=== PATIENT | female | born 1955 | race Hispanic/Latino ===

== ENCOUNTER 2017-11-04 10:52 | Outpatient (CLI) | payer MEDICARE | END 2017-11-04 10:53 | disposition home or self-care (01) | LOC: BICMAMMO 10:52 | PROVIDERS: ATTEND Family Medicine | DX: Z12.31 Encounter for screening mammogram for malignant neoplasm of breast (principal); R92.1 Mammographic calcification found on diagnostic imaging of breast | CPT/HCPCS: 77063; 77067 ==

== ENCOUNTER 2017-11-14 07:45 | Outpatient (CLI) | payer MEDICARE | END 2017-11-14 07:46 | disposition home or self-care (01) | LOC: BICMAMMO 07:45 | PROVIDERS: ATTEND Nurse Practitioner | DX: Z13.820 Encounter for screening for osteoporosis (principal); N95.1 Menopausal and female climacteric states | CPT/HCPCS: 77080 ==

== ENCOUNTER 2018-12-22 11:25 | Outpatient (CLI) | payer MEDICARE ==
--- NOTE | 2018-12-22 11:51 | MMO ---
Bilateral MAMMO Bilat Screen [facility]. CLINICAL HISTORY: Patient is 63 years old and is seen for screening. The patient has no family history of breast cancer. The patient has no personal history of cancer. VIEWS: The views performed were: bilateral craniocaudal with tomosynthesis and bilateral mediolateral oblique with tomosynthesis. FILMS COMPARED: The present examination has been compared to prior imaging studies performed at [facility] on 11/03/2010, 07/01/2013, 11/01/2016 and 11/04/2017. MAMMOGRAM FINDINGS: There are scattered fibroglandular densities. There are benign appearing calcifications seen in both breasts. There are also vascular calcifications. There are no suspicious masses, suspicious calcifications, or new areas of architectural distortion. IMPRESSION: THERE IS NO MAMMOGRAPHIC EVIDENCE OF MALIGNANCY. A ROUTINE FOLLOW-UP MAMMOGRAM IN 1 YEAR IS RECOMMENDED. THE RESULTS OF THIS EXAM WERE SENT TO THE PATIENT. ACR BI-RADS Category 2 - Benign finding MAMMOGRAPHY NOTE: 1. A negative mammogram report should not delay a biopsy if a dominant of clinically suspicious mass is present. 2. Approximately 10% to 15% of breast cancers are not detected by mammography. 3. Adenosis and dense breasts may obscure an underlying neoplasm. Reported by: NANDO FRANCO MD Electonically Signed: [id number]
== END 2018-12-22 11:26 | disposition home or self-care (01) ==
LOC: BICMAMMO 11:25
PROVIDERS: ATTEND Nurse Practitioner
DX: Z12.31 Encounter for screening mammogram for malignant neoplasm of breast (principal)
CPT/HCPCS: 77063; 77067

== ENCOUNTER 2018-12-29 10:43 | Outpatient (CLI) | payer MEDICARE ==
--- NOTE | 2018-12-29 12:31 | ULT ---
SOFT TISSUE ULTRASOUND: HISTORY: Patient feels a lump just inferior to the umbilicus. FINDINGS: Targeted sonographic imaging in the region of concern demonstrates a solid echotexture focus measurin g 1.3 x 2.0 x 2.4 cm. Correlation made with a CT from 12/08/2018 does not demonstrate corresponding finding. IMPRESSION: Solid echotexture focus without significant enhancement involving the left anterior abdominal wall, w orse on the region of concern. There is no corresponding finding on recent CT. Clinical correlation is essential. Consider general surgical consultation for possible biopsy or excision. Transcribed Date/Time: 12/29/2018 12:37 PM
== END 2018-12-29 10:44 | disposition home or self-care (01) ==
LOC: SCSULT 10:43
PROVIDERS: ATTEND Nurse Practitioner
DX: R19.04 Left lower quadrant abdominal swelling, mass and lump (principal)
CPT/HCPCS: 76705

== ENCOUNTER 2020-02-17 08:31 | Outpatient (CLI) | payer MEDICARE ==
--- NOTE | 2020-02-17 11:36 | MMO ---
Bilateral MAMMO Bilat Screen [facility]. CLINICAL HISTORY: Patient is 64 years old and is seen for screening. The patient has no family history of breast cancer. The patient has no personal history of cancer. VIEWS: The views performed were: bilateral craniocaudal with tomosynthesis and bilateral mediolateral oblique with tomosynthesis. FILMS COMPARED: The present examination has been compared to prior imaging studies performed at [facility] on 07/01/2013, 11/01/2016, 11/04/2017 and 12/22/2018. This study has been interpreted with the assistance of computer-aided detection. MAMMOGRAM FINDINGS: The breasts are almost entirely fat. There are no suspicious masses, suspicious calcifications, or new areas of architectural distortion. IMPRESSION: THERE IS NO MAMMOGRAPHIC EVIDENCE OF MALIGNANCY. A ROUTINE FOLLOW-UP MAMMOGRAM IN 1 YEAR IS RECOMMENDED. THE RESULTS OF THIS EXAM WERE SENT TO THE PATIENT. ACR BI-RADS Category 1 - Negative MAMMOGRAPHY NOTE: 1. A negative mammogram report should not delay a biopsy if a dominant of clinically suspicious mass is present. 2. Approximately 10% to 15% of breast cancers are not detected by mammography. 3. Adenosis and dense breasts may obscure an underlying neoplasm. Reported by: EMILIANO SULLIVAN MD Electonically Signed: [id number]
== END 2020-02-17 08:32 | disposition home or self-care (01) ==
LOC: BICMAMMO 08:31
PROVIDERS: ATTEND Nurse Practitioner Family
DX: Z12.31 Encounter for screening mammogram for malignant neoplasm of breast (principal)
CPT/HCPCS: 77063; 77067

== ENCOUNTER 2020-10-20 09:17 | Outpatient (CLI) | payer MEDICARE, MEDICAID ==
[2020-10-20 10:31] LABS: Prothrombin Time 10.9 sec (9.5-12.1)
[2020-10-20 10:42] LABS: #Eosinphils 0.5 10x3/uL (0.0-0.5); #Monocytes 0.7 10x3/uL (0.0-1.1); #Neutrophils 3.1 10x3/uL (1.5-8.4); %Basophils 0.4 % (0.0-2.0); %Eosinophils 6.5 % (0.0-6.0); %Lymphocytes 45.9 % (18.0-47.0); %Monocytes 8.4 % (0.0-10.0); %Neutrophils 38.6 % (40.0-75.0); Hemoglobin 13.9 g/dL (12.0-15.5); Mean Corpuscular HGB CONC 31.9 g/dL (32.0-36.0); Mean Corpuscular Hemoglobin 27.3 pg (27.0-33.0); Mean Corpuscular Volume 85.5 fl (81.6-98.3); Mean Platelet Volume 10.1 fl (7.4-10.4); Platelet Count 293 10x3/uL (150-450); RBC Distribution Width 13.9 % (11.5-14.5); White Blood Cell (WBC) Count 8.1 10x3/uL (3.5-10.5)
[2020-10-20 10:43] LABS: Anion Gap 13 mmol/L (10-20); BUN (Urea Nitrogen) 23 mg/dL (9.8-20.1); Calc. Creatinine Clearance 0 mL/min (70-130); Calcium 11.3 mg/dL (7.8-10.44); Carbon Dioxide 24 mmol/L (23-31); Chloride 103 mmol/L (98-107); Glucose 122 mg/dL (80-115); Potassium 4.3 mmol/L (3.5-5.1); Sodium 136 mmol/L (136-145)
[2020-10-20 23:05] LABS: SARS-CoV-2 NAA Rapid Test Not Detected (NotDetected)
== END 2020-10-20 09:18 | disposition home or self-care (01) ==
LOC: LABBT 09:17
PROVIDERS: ATTEND Orthopaedic Surgery
DX: Z01.818 Encounter for other preprocedural examination (principal); M17.12 Unilateral primary osteoarthritis, left knee; Z20.822 Contact with and (suspected) exposure to COVID-19
CPT/HCPCS: 80048; 85025; 85610; 87081; 93005; U0002; U0005; 93010

== ENCOUNTER 2020-10-25 06:24 | Inpatient (IN) | payer MEDICARE, MEDICAID ==
[2020-10-24 12:14] VITALS: BMI 39.0
[2020-10-25] MEDS ORDERED: Vancomycin 1 GM/200 ML BAG ONE (07:35)
[2020-10-25] MEDS ORDERED: Tranexamic Acid 1,000 MG/10 ML VIAL ONE (07:35)
[2020-10-25] MEDS ORDERED: Sodium Chloride 0.9% 200 ML ONE (07:35)
[2020-10-25] MEDS ORDERED: Vancomycin HCl 500 MG VIAL ONE (07:35)
[2020-10-25] MEDS ORDERED: Midazolam HCl 2 mg/2 ml Vial ONE (08:07)
[2020-10-25] MEDS ORDERED: Fentanyl 100 MCG/2 ML VIAL ONE ×3 (08:07→11:09)
[2020-10-25] MEDS ORDERED: HYDROcodone/Acetaminophen 10/325 mg Tablet PO PRN ×2 (08:53)
[2020-10-25] MEDS ORDERED: Fentanyl 100 MCG/2 ML VIAL SLOW IVP PRN (08:53)
[2020-10-25] MEDS ORDERED: diphenhydrAMINE 25 MG CAP PO PRN (08:53)
[2020-10-25] MEDS ORDERED: Acetaminophen 325 MG TAB PO PRN (08:53)
[2020-10-25] MEDS ORDERED: Ondansetron PF 4 MG/2 ML Vial IVP PRN ×2 (08:53→09:15)
[2020-10-25] MEDS ORDERED: Zolpidem Tartrate 5 MG TAB PO PRN ×2 (08:53→09:15)
[2020-10-25] MEDS ORDERED: Promethazine HCl 25 MG/ML VIAL IM PRN ×3 (08:53→09:53)
[2020-10-25] MEDS ORDERED: traMADol HCl 50 MG TAB PO PRN ×3 (08:53→09:15)
[2020-10-25] MEDS ORDERED: Triamterene/Hydrochlorothiazide 37.5 mg/25 mg Tablet PO SCH (09:00)
[2020-10-25] MEDS ORDERED: FENOFIBRATE MICRONIZED 67 MG PO SCH (09:00)
[2020-10-25] MEDS ORDERED: Aspirin 81 mg Enteric Coated Tablet PO SCH (09:00)
[2020-10-25] MEDS ORDERED: Fentanyl 100 MCG/2 ML VIAL IV PRN (09:04)
[2020-10-25] MEDS ORDERED: Ropivacaine HCl/PF 250 ML in Premix Bag 1 BAG NERVE BLCK SCH (09:15)
[2020-10-25] MEDS ORDERED: Ropivacaine 2% HCl/PF (20 MG/10 ML VIAL) ONE (09:26)
[2020-10-25] MEDS ORDERED: Bupivacaine HCl 0.5%/Epinephrine 1:200,000/PF 30 ml Vial ONE (09:26)
[2020-10-25] MEDS ORDERED: ePHEDrine Sulfate 50 MG/10 ML VIAL ONE (09:26)
[2020-10-25] MEDS ORDERED: Lidocaine 1% PF 5 ML VIAL ONE (09:26)
[2020-10-25] MEDS ORDERED: PROPOFOL 200 MG/20 ML VIAL ONE (09:26)
[2020-10-25] MEDS ORDERED: Ondansetron HCl/PF 4 MG/2 ML Vial IVP PRN (09:53)
[2020-10-25] MEDS ORDERED: Promethazine HCl 25 MG/ML VIAL SLOW IVP PRN (09:53)
[2020-10-25] MEDS ORDERED: Insulin Regular 300 UNITS/3 ML VIAL SC PRN ×2 (13:18)
[2020-10-25] MEDS ORDERED: Dextrose 5% in Water 1,000 ML IV PRN (13:18)
[2020-10-25] MEDS ORDERED: Dextrose 50% Abboject 50 ML SYRINGE SLOW IVP PRN (13:18)
[2020-10-25] MEDS: Senokot S 8.6-50 MG TAB PO SCH ×2 (13:21→20:46)
[2020-10-25] MEDS: Gabapentin 300 MG CAP PO SCH ×2 (13:21→20:46)
[2020-10-25] MEDS: Multivitamin W/ Minerals 1 TAB PO SCH (13:21)
[2020-10-25] MEDS: Ferrous Gluconate 324 MG TAB PO SCH ×2 (13:21→20:43)
[2020-10-25] MEDS: Aspirin 81 mg Enteric Coated Tablet PO SCH (13:21)
[2020-10-25] MEDS: Sodium Chloride 0.9% 1,000 ML IV SCH ×2 (13:21→22:52)
[2020-10-25] MEDS: Ketorolac Tromethamine 30 MG/ML VIAL IVP SCH ×2 (13:26→17:32)
[2020-10-25] MEDS: HYDROcodone/Acetaminophen 10/325 mg Tablet PO PRN ×2 (13:32→17:33)
[2020-10-25] MEDS: CEFAZOLIN 2 GM in Premix Bag 1 BAG IVPB SCH (16:50)
[2020-10-25] MEDS: Empagliflozin 25 MG TAB PO SCH (20:44)
[2020-10-25] MEDS: Alogliptin 6.25 MG TAB PO SCH (20:45)
[2020-10-25] MEDS: Rosuvastatin 20 MG TAB PO SCH (20:46)
[2020-10-25] MEDS: metFORMIN 500 MG TAB PO SCH (20:46)
[2020-10-25] MEDS: Amlodipine 5 MG TAB PO SCH (20:47)
[2020-10-25] MEDS ORDERED: Amlodipine 5 MG TAB PO SCH (21:00)
[2020-10-26] MEDS: CEFAZOLIN 2 GM in Premix Bag 1 BAG IVPB SCH (00:54)
[2020-10-26] MEDS: Ketorolac Tromethamine 30 MG/ML VIAL IVP SCH ×4 (01:26→18:46)
[2020-10-26] MEDS: Sodium Chloride 0.9% 1,000 ML IV SCH ×2 (03:36→16:15)
[2020-10-26] MEDS: HYDROcodone/Acetaminophen 10/325 mg Tablet PO PRN ×2 (05:12→09:39)
[2020-10-26 06:11] LABS: Hemoglobin 12.4 g/dL (12.0-16.0); Mean Corpuscular HGB CONC 32.6 g/dL (32.0-36.0); Mean Corpuscular Hemoglobin 28.1 pg (27.0-31.0); Mean Corpuscular Volume 86.2 fL (78.0-98.0); Mean Platelet Volume 8.3 fL (7.4-10.4); Platelet Count 231 thou/uL (130-400); RBC Distribution Width 12.9 % (11.5-14.5); White Blood Cell (WBC) Count 8.8 thou/uL (4.8-10.8)
[2020-10-26] MEDS: Aspirin 81 mg Enteric Coated Tablet PO SCH (08:39)
[2020-10-26] MEDS: Multivitamin W/ Minerals 1 TAB PO SCH (08:39)
[2020-10-26] MEDS: Senokot S 8.6-50 MG TAB PO SCH ×2 (08:40→20:48)
[2020-10-26] MEDS: Alogliptin 6.25 MG TAB PO SCH ×2 (08:40→20:48)
[2020-10-26] MEDS: Losartan 25 MG TAB PO SCH ×2 (08:40→08:43)
[2020-10-26] MEDS: metFORMIN 500 MG TAB PO SCH (08:40)
[2020-10-26] MEDS: Fenofibrate 48 MG TAB PO SCH (08:41)
[2020-10-26] MEDS: Fish Oil 1,000 MG CAP PO SCH (08:41)
[2020-10-26] MEDS: Gabapentin 300 MG CAP PO SCH ×2 (08:41→20:48)
[2020-10-26] MEDS: Ferrous Gluconate 324 MG TAB PO SCH ×2 (08:41→20:48)
[2020-10-26] MEDS ORDERED: Losartan 25 MG TAB PO SCH (09:00)
[2020-10-26] MEDS: Empagliflozin 25 MG TAB PO SCH (20:46)
[2020-10-26] MEDS: Amlodipine 5 MG TAB PO SCH (20:46)
[2020-10-26] MEDS: Rosuvastatin 20 MG TAB PO SCH (20:46)
[2020-10-27] MEDS: Ketorolac Tromethamine 30 MG/ML VIAL IVP SCH
[2020-10-27] MEDS: Sodium Chloride 0.9% 1,000 ML IV SCH ×2 (01:24→11:25)
[2020-10-27] MEDS: HYDROcodone/Acetaminophen 10/325 mg Tablet PO PRN ×2 (06:10→11:27)
[2020-10-27] MEDS ORDERED: metFORMIN 500 MG TAB PO SCH (08:00)
[2020-10-27] MEDS: Gabapentin 300 MG CAP PO SCH (08:25)
[2020-10-27] MEDS: Senokot S 8.6-50 MG TAB PO SCH (08:25)
[2020-10-27] MEDS: Multivitamin W/ Minerals 1 TAB PO SCH (08:25)
[2020-10-27] MEDS: Alogliptin 6.25 MG TAB PO SCH (08:25)
[2020-10-27] MEDS: Fish Oil 1,000 MG CAP PO SCH (08:25)
[2020-10-27] MEDS: Ferrous Gluconate 324 MG TAB PO SCH (08:26)
[2020-10-27] MEDS: Fenofibrate 48 MG TAB PO SCH (08:26)
[2020-10-27] MEDS: Losartan 25 MG TAB PO SCH (08:28)
[2020-10-27] MEDS ORDERED: Aspirin 81 mg Enteric Coated Tablet PO SCH (09:00)
[2020-10-27 11:58] VITALS: BP 151/83; TEMP 97.9
== END 2020-10-27 13:10 | disposition home or self-care (01) | DRG 470 ==
LOC: SDC 06:24 → SURG B 08:54
PROVIDERS: ADMIT Orthopaedic Surgery; ATTEND Orthopaedic Surgery
PROC: 0SRD0J9 Replacement of Left Knee Joint with Synthetic Substitute, Cemented, Open Approach (ICD-10-PCS; principal; 2020-10-25)
DX: M17.12 Unilateral primary osteoarthritis, left knee (principal); E78.5 Hyperlipidemia, unspecified; F41.9 Anxiety disorder, unspecified; E66.9 Obesity, unspecified; J45.909 Unspecified asthma, uncomplicated; I12.9 Hypertensive chronic kidney disease with stage 1 through stage 4 chronic kidney disease, or unspecified chronic kidney disease; E11.22 Type 2 diabetes mellitus with diabetic chronic kidney disease; N18.2 Chronic kidney disease, stage 2 (mild); Z88.8 Allergy status to other drugs, medicaments and biological substances; Z98.890 Other specified postprocedural states; Z88.1 Allergy status to other antibiotic agents; Z88.2 Allergy status to sulfonamides; Z68.39 Body mass index [BMI] 39.0-39.9, adult
CPT/HCPCS: 36415; 36416; 85027; C1713; C1776; J0690; J1885; J2250; J2704; J2795; J3010; J3370; J3490

== ENCOUNTER 2020-10-30 12:26 | Emergency (ER) | payer MEDICARE, MEDICAID | END 2020-10-30 13:45 | disposition home or self-care (01) | LOC: ERS 12:26 | DX: G89.18 Other acute postprocedural pain (principal); M25.562 Pain in left knee; Z79.899 Other long term (current) drug therapy; E11.9 Type 2 diabetes mellitus without complications; E78.5 Hyperlipidemia, unspecified; E78.00 Pure hypercholesterolemia, unspecified; I10 Essential (primary) hypertension; J45.909 Unspecified asthma, uncomplicated ==

== ENCOUNTER 2021-01-30 11:50 | Outpatient (CLI) | payer MEDICARE ==
[2021-01-30 13:22] LABS: Anion Gap 19 mmol/L (10-20); BUN (Urea Nitrogen) 16 mg/dL (9.8-20.1); Calc. Creatinine Clearance 0 mL/min (70-130); Calcium 11.7 mg/dL (7.8-10.44); Carbon Dioxide 24 mmol/L (23-31); Chloride 102 mmol/L (98-107); Glucose 148 mg/dL (80-115); Potassium 4.6 mmol/L (3.5-5.1); Sodium 140 mmol/L (136-145)
[2021-01-30 22:22] LABS: SARS-CoV-2 PCR by NAA Not Detected (NotDetected)
== END 2021-01-30 11:51 | disposition home or self-care (01) ==
LOC: LABBT 11:50
PROVIDERS: ATTEND Orthopaedic Surgery
DX: Z01.812 Encounter for preprocedural laboratory examination (principal); Z20.822 Contact with and (suspected) exposure to COVID-19
CPT/HCPCS: 80048; U0003; U0005

== ENCOUNTER 2021-02-02 08:17 | Day surgery (SDC) | payer MEDICARE, MEDICAID ==
[2021-02-01 09:07] VITALS: BMI 38.7
[2021-02-02] MEDS ORDERED: Midazolam HCl 2 mg/2 ml Vial ONE (09:44)
[2021-02-02] MEDS ORDERED: Lidocaine 1% (PF) 30 ML VIAL ONE (09:44)
[2021-02-02] MEDS ORDERED: Fentanyl 100 MCG/2 ML VIAL ONE ×3 (09:44→11:02)
[2021-02-02] MEDS ORDERED: Ropivacaine 0.5% HCl/PF (150 MG/30 ML VIAL) ONE (10:00)
[2021-02-02] MEDS ORDERED: PROPOFOL 200 MG/20 ML VIAL ONE (10:15)
[2021-02-02] MEDS ORDERED: Lidocaine 1% PF 5 ML VIAL ONE (10:15)
[2021-02-02] MEDS ORDERED: Morphine 4 MG/ML VIAL ONE (10:35)
[2021-02-02] MEDS ORDERED: Morphine 2 MG/ML VIAL ONE (10:40)
== END 2021-02-02 14:10 | disposition home or self-care (01) ==
LOC: SDC 08:17
PROVIDERS: ATTEND Orthopaedic Surgery
PROC: 0SNDXZZ Release Left Knee Joint, External Approach (ICD-10-PCS; principal; 2021-02-02)
DX: M24.662 Ankylosis, left knee (principal); J45.909 Unspecified asthma, uncomplicated; E78.00 Pure hypercholesterolemia, unspecified; E11.9 Type 2 diabetes mellitus without complications; I10 Essential (primary) hypertension; Z79.82 Long term (current) use of aspirin; Z79.84 Long term (current) use of oral hypoglycemic drugs; Z79.899 Other long term (current) drug therapy; Z88.1 Allergy status to other antibiotic agents; Z88.2 Allergy status to sulfonamides; Z88.8 Allergy status to other drugs, medicaments and biological substances; Z96.652 Presence of left artificial knee joint
CPT/HCPCS: 27570; J2270; J2001; J2250; J3010

== ENCOUNTER 2021-03-29 19:55 | Inpatient (IN) | payer MEDICARE, MEDICAID ==
[2021-03-29 21:50] VITALS: BMI 38.9
[2021-03-29] MEDS ORDERED: Ondansetron ODT 4 MG TAB SL PRN (22:15)
[2021-03-29] MEDS ORDERED: Ondansetron PF 4 MG/2 ML Vial IVP PRN (22:15)
[2021-03-29] MEDS ORDERED: Acetaminophen 325 MG TAB PO PRN (22:15)
[2021-03-29] MEDS ORDERED: Bisacodyl 5 MG TAB PO PRN (23:23)
[2021-03-29] MEDS ORDERED: HYDROcodone/Acetaminophen 5/325 mg Tablet PO PRN (23:23)
[2021-03-29] MEDS ORDERED: HYDROcodone/Acetaminophen 7.5/325 mg Tablet PO PRN (23:23)
[2021-03-29] MEDS ORDERED: Senokot S 8.6-50 MG TAB PO PRN (23:23)
[2021-03-29] MEDS ORDERED: Melatonin 3 MG TAB PO PRN (23:30)
[2021-03-29] MEDS ORDERED: hydrALAZINE 20 MG/ML VIAL SLOW IVP PRN (23:30)
[2021-03-29] MEDS ORDERED: Famotidine/PF 20 mg/2ml Vial SLOW IVP SCH (23:45)
[2021-03-30 00:30] LABS: Troponin I Less than 0.010 ng/mL (< 0.028)
[2021-03-30] MEDS ORDERED: Dextrose 50% Abboject 50 ML SYRINGE SLOW IVP PRN (00:34)
[2021-03-30] MEDS ORDERED: Dextrose 5% in Water 1,000 ML IV PRN (00:34)
[2021-03-30] MEDS ORDERED: HumaLOG 300 UNITS/3 ML VIAL SC PRN ×2 (00:34)
[2021-03-30 05:56] LABS: #Basophils 0.1 thou/uL (0.0-0.2); #Eosinphils 0.4 thou/uL (0.0-0.7); #Lymphocytes 2.6 thou/uL (1.20-3.40); #Monocytes 0.5 thou/uL (0.11-0.59); #Neutrophils 2.3 thou/uL (1.40-6.50); %Basophils 1.2 % (0.0-1.0); %Eosinophils 7.6 % (0.0-10.0); %Lymphocytes 44.4 % (21.0-51.0); %Monocytes 8.5 % (0.0-10.0); %Neutrophils 38.3 % (42.0-75.0); Hemoglobin 13.2 g/dL (12.0-16.0); Mean Corpuscular HGB CONC 33.5 g/dL (32.0-36.0); Mean Corpuscular Hemoglobin 28.7 pg (27.0-31.0); Mean Corpuscular Volume 85.6 fL (78.0-98.0); Mean Platelet Volume 7.3 fL (7.4-10.4); Platelet Count 231 thou/uL (130-400); RBC Distribution Width 13.8 % (11.5-14.5); Red Blood Cell (RBC) Count 4.61 mill/uL (4.20-5.40); White Blood Cell (WBC) Count 5.9 thou/uL (4.8-10.8)
[2021-03-30 06:08] LABS: Hemoglobin A1c 6.2 % (4.0-6.0)
[2021-03-30 06:25] LABS: ALT (SGPT) 14 U/L (8-55); AST (SGOT) 15 U/L (5-34); Alkaline Phosphatase 58 U/L (40-110); Anion Gap 12 mmol/L (10-20); BUN (Urea Nitrogen) 14 mg/dL (9.8-20.1); Bilirubin, Total 0.4 mg/dL (0.2-1.2); Calc. Creatinine Clearance 108 mL/min (70-130); Calcium 10.7 mg/dL (7.8-10.44); Carbon Dioxide 26 mmol/L (23-31); Cardiac Risk 3.6 (Less than 4.5); Chloride 106 mmol/L (98-107); Cholesterol 160 mg/dl (< 200 Desired); Globulin 3.1 g/dL (2.4-3.5); Glucose 96 mg/dL (80-115); HDL Cholesterol 45 mg/dL (>60 Neg Risk); LDL Cholesterol, Calculated 82 mg/dL; Potassium 3.7 mmol/L (3.5-5.1); Protein, Total 7.1 g/dL (5.8-8.1); Sodium 140 mmol/L (136-145); Triglycerides 164 mg/dL (Less than 150)
[2021-03-30] MEDS ORDERED: Lorazepam 2 MG/ML VIAL SLOW IVP PRN (08:12)
[2021-03-30] MEDS: Rosuvastatin 20 MG TAB PO SCH (08:34)
[2021-03-30] MEDS: Losartan 25 MG TAB PO SCH (08:34)
[2021-03-30] MEDS ORDERED: Aspirin 325 mg Enteric Coated Tablet PO SCH (16:45)
[2021-03-30] MEDS: Gabapentin 300 MG CAP PO SCH (20:31)
[2021-03-30] MEDS ORDERED: Amlodipine 5 MG TAB PO SCH (21:00)
[2021-03-30] MEDS ORDERED: Famotidine/PF 20 mg/2ml Vial SLOW IVP SCH (21:00)
[2021-03-31] MEDS: Losartan 25 MG TAB PO SCH (08:45)
[2021-03-31] MEDS: Rosuvastatin 20 MG TAB PO SCH (08:45)
[2021-03-31] MEDS ORDERED: Ezetimibe 10 MG TAB PO SCH (09:00)
[2021-03-31] MEDS ORDERED: Famotidine/PF 20 mg/2ml Vial SLOW IVP SCH (09:00)
[2021-03-31] MEDS ORDERED: Aspirin 325 mg Enteric Coated Tablet PO SCH (09:00)
[2021-03-31 12:19] VITALS: TEMP 98.2
[2021-03-31] MEDS ORDERED: Lidocaine 1% w/Epinephrine 1:100K 20 ML VIAL ONE (14:02)
[2021-03-31] MEDS: Gabapentin 300 MG CAP PO SCH (14:52)
[2021-03-31 15:53] VITALS: BP 148/79
== END 2021-03-31 17:15 | disposition home or self-care (01) | DRG 42 ==
LOC: NEURO 19:55 → OBSVTOIN 03-31 13:26
PROVIDERS: ADMIT Student in an Organized Health Care Education/Training Program; ATTEND Internal Medicine
PROC: 0JH602Z Insertion of Monitoring Device into Chest Subcutaneous Tissue and Fascia, Open Approach (ICD-10-PCS; principal; 2021-03-31)
DX: I63.89 Other cerebral infarction (principal); Z20.822 Contact with and (suspected) exposure to COVID-19; I65.22 Occlusion and stenosis of left carotid artery; I10 Essential (primary) hypertension; E11.65 Type 2 diabetes mellitus with hyperglycemia; H53.2 Diplopia; J45.909 Unspecified asthma, uncomplicated; Z96.652 Presence of left artificial knee joint; E78.5 Hyperlipidemia, unspecified; Z88.2 Allergy status to sulfonamides; Z88.8 Allergy status to other drugs, medicaments and biological substances; R29.700 NIHSS score 0
CPT/HCPCS: 33285; 36415; 36416; 70551; 80053; 80061; 83036; 85025; 93306; 96374; 96375; 96376; C1764; G0378; J2060; S0028

== ENCOUNTER 2021-04-25 11:22 | Outpatient (CLI) | payer MEDICARE, MEDICAID ==
[2021-04-25] MEDS ORDERED: Iopamidol-370 76% 500 ML 1 ML ONE (13:42)
== END 2021-04-25 11:23 | disposition home or self-care (01) ==
LOC: BICCT 11:22
PROVIDERS: ATTEND Thoracic Surgery (Cardiothoracic Vascular Surgery)
DX: I65.23 Occlusion and stenosis of bilateral carotid arteries (principal)
CPT/HCPCS: 70498; Q9967

== ENCOUNTER 2022-11-08 08:53 | Outpatient (CLI) | payer OTHER | END 2022-11-08 08:54 | disposition home or self-care (01) | LOC: BICMAMMO 08:53 | PROVIDERS: ATTEND Family Medicine | DX: Z12.31 Encounter for screening mammogram for malignant neoplasm of breast (principal) | CPT/HCPCS: 77063; 77067 ==

== ENCOUNTER 2023-11-11 11:07 | Outpatient (CLI) | payer MEDICARE | END 2023-11-11 11:08 | disposition home or self-care (01) | LOC: BICMAMMO 11:07 | PROVIDERS: ATTEND Nurse Practitioner Family | DX: Z12.31 Encounter for screening mammogram for malignant neoplasm of breast (principal) | CPT/HCPCS: 77063; 77067 ==

== ENCOUNTER 2024-05-25 08:15 | Outpatient (CLI) | payer MEDICAID, MEDICARE, OTHER | END 2024-05-25 08:16 | disposition home or self-care (01) | LOC: SCSMRI 08:15 | PROVIDERS: ATTEND Student in an Organized Health Care Education/Training Program | DX: M75.102 Unspecified rotator cuff tear or rupture of left shoulder, not specified as traumatic (principal); S46.012A Strain of muscle(s) and tendon(s) of the rotator cuff of left shoulder, initial encounter ==

== ENCOUNTER 2025-01-27 10:09 | Outpatient (CLI) | payer OTHER | END 2025-01-27 10:10 | disposition home or self-care (01) | LOC: BICMAMMO 10:09 | PROVIDERS: ATTEND Family Medicine | DX: Z12.31 Encounter for screening mammogram for malignant neoplasm of breast (principal) | CPT/HCPCS: 77063; 77067 ==